=== PATIENT | male | born 1970 | race Caucasian/White ===

== ENCOUNTER 2020-04-02 07:13 | Day surgery (SDC) | payer BC, OTHER ==
[~2020-04-02] VITALS: Ht 172.7 cm; Wt 86.5 kg
[2020-04-02 08:07] VITALS: BP 139/82
[2020-04-02] MEDS ORDERED: CHLORHEXIDINE 15 ML UDC ONE (08:20)
[2020-04-02] MEDS ORDERED: PANT20TA3 PO (08:22)
[2020-04-02] MEDS ORDERED: LACTATED RINGERS 1,000 ML IV SCH (08:24)
[2020-04-02] MEDS ORDERED: CHLORHEXIDINE 15 ML UDC MM ONE (08:30)
[2020-04-02] MEDS ORDERED: GLYCOPYRROLATE 0.2MG/1ML, 5ML ONE (08:53)
[2020-04-02] MEDS ORDERED: ROCURONIUM 10MG/ML,5ML ONE (08:53)
[2020-04-02] MEDS ORDERED: DEXAMETHASONE 4 MG/ML, 1ML ONE (08:53)
[2020-04-02] MEDS ORDERED: PROPOFOL 10 MG/ML, 20ML ONE (08:53)
[2020-04-02] MEDS ORDERED: MIDAZOLAM 1 MG/ML, 2ML ONE (08:53)
[2020-04-02] MEDS ORDERED: FENTANYL PF 250 MCG/5ML ONE (08:53)
[2020-04-02] MEDS ORDERED: LIDOCAINE-MPF 2% ,5ML ONE (08:53)
[2020-04-02] MEDS ORDERED: SCOPOLAMINE 1MG PATCH TD ONE (10:44)
[2020-04-02] MEDS ORDERED: CEFAZOLIN 1,000 MG ONE (10:51)
[2020-04-02] MEDS ORDERED: SCOPOLAMINE 1MG PATCH TD SCH (11:00)
[2020-04-02] MEDS ORDERED: ONDANSETRON 2MG/ML, 2ML ONE (11:28)
[2020-04-02] MEDS ORDERED: METOCLOPRAMIDE 5 MG/ML, 2ML ONE (11:28)
[2020-04-02] MEDS ORDERED: MIDAZOLAM 1 MG/ML, 2ML IV PRN (11:30)
[2020-04-02] MEDS ORDERED: LORazepam 2 MG/ML, 1ML IVPush PRN (11:30)
[2020-04-02] MEDS ORDERED: LABETALOL 5MG/ML, 20ML IV PRN (11:30)
[2020-04-02] MEDS ORDERED: DIPHENHYDRAMINE 50 MG/ML, 1ML IVPush PRN (11:30)
[2020-04-02] MEDS ORDERED: ACETAMINOPHEN 325 MG TABLET PO PRN (11:30)
[2020-04-02] MEDS ORDERED: FENTANYL PF 100 MCG/2ML IV PRN (11:30)
[2020-04-02] MEDS ORDERED: METOCLOPRAMIDE 5 MG/ML, 2ML IVPush PRN (11:30)
[2020-04-02] MEDS ORDERED: ONDANSETRON 2MG/ML, 2ML IVPush PRN (11:30)
[2020-04-02] MEDS ORDERED: METHOCARBAMOL 1,000 MG in DEXTROSE 5% 100 ML IV PRN (11:30)
[2020-04-02] MEDS ORDERED: MEPERIDINE/PF 25MG/0.5ML IVPush PRN (11:30)
[2020-04-02] MEDS ORDERED: EPHEDRINE 50 MG/ML, 1ML IM PRN (11:30)
[2020-04-02] MEDS ORDERED: DIAZEPAM 5 MG/ML, 2ML IVPush PRN (11:30)
[2020-04-02] MEDS ORDERED: EPHEDRINE 50 MG/ML, 1ML IVPush PRN (11:30)
[2020-04-02] MEDS ORDERED: HALOPERIDOL 5 MG/ML IV PRN (11:30)
[2020-04-02] MEDS ORDERED: hydrALAzine 20 MG/ML, 1ML IV PRN (11:30)
[2020-04-02] MEDS ORDERED: ALBUTEROL/IPRATROPIUM 2.5MG/0.5MG, 3 ML NPPB PRN (11:30)
[2020-04-02] MEDS ORDERED: KETOROLAC 30 MG/1 ML IVPush PRN ×2 (11:30→12:30)
[2020-04-02] MEDS ORDERED: OMNIPAQUE 350 MG/ML, 50 ML BOTTLE ONE (11:46)
[2020-04-02] MEDS ORDERED: KETOROLAC 30 MG/1 ML ONE (12:03)
== END 2020-04-02 15:00 | disposition home or self-care (01) ==
LOC: OUT 07:13
PROVIDERS: ATTEND Urology
DX: N13.2 Hydronephrosis with renal and ureteral calculous obstruction (principal); N40.0 Benign prostatic hyperplasia without lower urinary tract symptoms; K21.9 Gastro-esophageal reflux disease without esophagitis; Z79.899 Other long term (current) drug therapy
CPT/HCPCS: 52332; 52352; 74420; 82360; 88300; C1758; C1769; C2617; J0690; J1100; J1885; J2250; J2405; J2704; J2765; J3010; J7120; Q9967